=== PATIENT | female | born 1980 | race African-American/Black ===

== ENCOUNTER 2016-12-09 19:08 | Emergency (ER) | payer OTHER ==
[~2016-12-09] VITALS: Ht 157.5 cm; Wt 63.5 kg
[~2016-12-09 19:08] MED LIST: ACETAMINOPHEN-1 EAC1 ORAL; ANUSOL-HC25 MG RECTAL; BACTRIM-DS1 EA ORAL; CYCLOBENZAPRINE10 MG ORAL; IBUPROFEN600 MG ORAL; KEFLEX500 MG ORAL; LORATADINE10 M1 PO; NAPROXEN375 MG PO; NKM; NORCO 5-325 TA1 EACH PO; PHENERGAN/CODE120 ML PO; VIBRAMYCIN100 MG ORAL; supplements
--- NOTE | 2016-12-09 19:38 | Emergency Room Report ---
History of Present Illness General Chief Complaint: Female Urogenital Problems Source: Patient Present Illness [facility] The patient is a 36-year-old female at 8 weeks gestation presenting for vaginal bleeding which occurred today. The patient states that she noticed intermittent pain to the left lower abdomen followed by light vaginal bleeding. She denies any pain at this time but states that the intermittent abdominal pain is described as an 8/10 sharp sensation. No known provoking or relieving factors. Pain does not radiate. She denies any other symptoms such as N, V, F, chills, dysuria, other vaginal DC, flank pain, constipation, diarrhea, LARES, dizziness Allergies: Coded Allergies: No Known Allergies (Unverified , 08/05/12) Patient History Past Medical History: see triage record Pertinent Family History: none Now: Yes : 3 Para: 2 Reviewed Nursing Documentation: PMH: Agreed, PSxH: Agreed Nursing Documentation-PM Past Medical History: No Stated History Hx Cardiac Problems: No - ANEMIA Review of Systems All Other Systems: negative except mentioned in HPI Physical Exam Vital Signs Date Time Temp Pulse Resp B/P Pulse Ox O2 Delivery O2 Flow Rate FiO2 12/09/16 19:11 98.2 78 18 100/55 99 Room Air Sp02 EP Interpretation: reviewed, normal General Appearance: no apparent distress, alert, GCS 15, non-toxic Head: normocephalic, atraumatic Eyes: bilateral eye PERRL, bilateral eye normal inspection ENT: hearing grossly normal, normal pharynx, no angioedema, normal voice Neck: full range of motion, supple/symm/no masses Respiratory: chest non-tender, lungs clear, normal breath sounds, speaking full sentences Cardiovascular #1: regular rate, rhythm, no edema Gastrointestinal: normal bowel sounds, soft, non-distended, no guarding, no rebound, tenderness - suprapubic Genitourinary: normal inspection, no CVA tenderness Musculoskeletal: back normal, gait/station normal, normal range of motion, non- tender Neurologic: alert, oriented x3, responsive, motor strength/tone normal, sensory intact, speech normal Psychiatric: judgement/insight normal, memory normal, mood/affect normal, no suicidal/homicidal ideation Skin: normal color, no rash, warm/dry, well hydrated Medical Decision Making PA Attestation Dr. Bui is my supervising physician. Patient management was discussed with my supervising physician Diagnostic Impression: Primary Impression: Threatened miscarriage ER Course The patient is a 36-year-old female at 8 weeks gestation presenting for vaginal bleeding Differential diagnoses considered include but not limited to Early , threatened , incomplete , ectopic , hemorrhagic cyst, UTI PE: Vitals WNL. NAD. Abdomen: Normal appearance. Non distended. No ecchymosis. Normal BS. + TTP over suprapubic region. No McBurney point tenderness. No guarding. No CVA tenderness CBC unremarkable. CMP unremarkable. beta hCG 92637 which is low for presumed gestational age of 8 weeks UA: consistent with UTI US: Evidence of intrauterine . Viability is indeterminate at this time. The patient was informed of these results and will followup with [facility] in 2-3 days for followup and repeat ultrasound/beta hCG. She is informed to return to the emergency department if pain or bleeding continues/worsens or for any reason. She agrees with this plan. She'll be treated for UTI Labs Test 12/09/16 19:25 12/09/16 20:00 Urine Color Yellow Urine Appearance Slightly cloudy Urine pH 9 (4.5-8.0) Urine Specific [place] 1.015 (1.005-1.035) Urine Protein Negative (NEGATIVE) Urine Glucose (UA) Negative (NEGATIVE) Urine Ketones Negative (NEGATIVE) Urine Occult Blood Negative (NEGATIVE) Urine Nitrite Negative (NEGATIVE) Urine Bilirubin Negative (NEGATIVE) Urine Urobilinogen Normal MG/DL (0.0-1.0) Urine Leukocyte Esterase 1+ (NEGATIVE) Urine RBC 5-10 /HPF (0 - 2) Urine WBC 0-2 /HPF (0 - 2) Urine Squamous Epithelial Cells Many /LPF (NONE/OCC) Urine Bacteria Moderate /HPF (NONE) Urine Mucus Moderate /LPF (NONE/OCC) Urine HCG, Qualitative Positive White Blood Count 6.1 K/UL (4.8-10.8) Red Blood Count 3.83 M/UL (4.20-5.40) Hemoglobin 11.5 G/DL (12.0-16.0) Hematocrit 34.0 % (37.0-47.0) Mean Corpuscular Volume 89 FL (80-99) Mean Corpuscular Hemoglobin 30.0 PG (27.0-31.0) Mean Corpuscular Hemoglobin Concent 33.9 G/DL (32.0-36.0) Red Cell Distribution Width 13.0 % (11.6-14.8) Platelet Count 240 K/UL (150-450) Mean Platelet Volume 6.7 FL (6.5-10.1) Neutrophils (%) (Auto) 51.7 % (45.0-75.0) Lymphocytes (%) (Auto) 37.4 % (20.0-45.0) Monocytes (%) (Auto) 8.7 % (1.0-10.0) Eosinophils (%) (Auto) 1.2 % (0.0-3.0) Basophils (%) (Auto) 1.1 % (0.0-2.0) Sodium Level 138 mEQ/L (135-145) Potassium Level 4.3 mEQ/L (3.4-4.9) Chloride Level 100 mEQ/L (98-107) Carbon Dioxide Level 25 mEQ/L (20-30) Anion Gap 13 (5-15) Blood Urea Nitrogen 10 mg/dL (7-23) Creatinine 0.6 mg/dL (0.5-0.9) Estimat Glomerular Filtration Rate > 60 mL/min (>60) Glucose Level 94 mg/dL (74-106) Calcium Level 9.4 mg/dL (8.6-10.2) Total Bilirubin 0.6 mg/dL (0.0-1.2) Aspartate Amino Transf (AST/SGOT) 20 U/L (5-40) Alanine Aminotransferase (ALT/SGPT) 14 U/L (3-33) Alkaline Phosphatase 40 U/L (35-104) Total Protein 7.1 g/dL (6.6-8.7) Albumin 4.3 g/dL (3.5-5.2) Globulin 2.8 g/dL Albumin/Globulin Ratio 1.5 (1.0-2.7) Human Chorionic Gonadotropin, Quant 45667 mIU/mL Lab Results Impression CBC unremarkable. CMP unremarkable. beta hCG 23837 which is low for presumed gestational age of 8 weeks UA: consistent with UTI CT/MRI/US Diagnostic Results CT/MRI/US Diagnostic Results : Imaging Test Ordered: OB US Impression Evidence of intrauterine . Viability is indeterminate at this time. Ultrasound dating of the intrauterine is inadequate as obtained on the current exam. The may be too early to date. Suggest correlation with quantitative beta-hCG and repeat the ultrasound examination. Last Vital Signs Date Time Temp Pulse Resp B/P Pulse Ox O2 Delivery O2 Flow Rate FiO2 12/09/16 19:11 98.2 78 18 100/55 99 Room Air Status: improved Disposition: HOME, SELF-CARE Condition: Stable Referrals: [facility],REFERRING (PCP) MAURIZIO TOTH Dec 09, 2016 19:38
[2016-12-09 19:42] LABS: APPEARANCE,URINE SLIGHTLY CLOUDY; KETONES,URINE NEGATIVE (NEGATIVE); LEUKOCYTE ESTERASE ,URINE 1+ (NEGATIVE); NITRITE,URINE NEGATIVE (NEGATIVE); PH,URINE 9 (4.5-8.0); PROTEIN,URINE NEGATIVE (NEGATIVE); UROBILINOGEN,URINE NORMAL MG/DL (0.0-1.0)
[2016-12-09 19:50] LABS: SQUAMOUS EPITHELIAL CELL,UR MANY /LPF (NONE/OCC); WBC,URINE 0-2 /HPF (0 - 2)
[2016-12-09 19:51] LABS: BACTERIA,URINE MODERATE /HPF; MUCUS,URINE MODERATE /LPF (NONE/OCC)
[2016-12-09 20:22] LABS: BASOPHILS % (AUTO) 1.1 % (0.0-2.0); EOSINOPHILS % (AUTO) 1.2 % (0.0-3.0); LYMPHOCYTES % (AUTO) 37.4 % (20.0-45.0); MEAN CORPUSCULAR HGB CONC 33.9 G/DL (32.0-36.0); MEAN CORPUSCULAR VOLUME 89 FL (80-99); MEAN PLATELET VOLUME 6.7 FL (6.5-10.1); MONOCYTES % (AUTO) 8.7 % (1.0-10.0); NEUTROPHILS % (AUTO) 51.7 % (45.0-75.0); PLATELET COUNT 240 K/UL (150-450); RED BLOOD COUNT 3.83 M/UL (4.20-5.40); WHITE BLOOD COUNT 6.1 K/UL (4.8-10.8)
[2016-12-09 20:33] LABS: ALANINE AMINOTRANSFERASE 14 U/L (3-33); ALBUMIN/GLOBULIN RATIO 1.5 (1.0-2.7); ANION GAP 13 (5-15); ASPARTATE AMINO TRANSFERASE 20 U/L (5-40); CALCIUM 9.4 mg/dL (8.6-10.2); CARBON DIOXIDE 25 mEQ/L (20-30); CHLORIDE 100 mEQ/L (98-107); CREATININE 0.6 mg/dL (0.5-0.9); GLOMERULAR FILTRATION RATE > 60 mL/min (>60); HEMOLYSIS 6; POTASSIUM 4.3 mEQ/L (3.4-4.9); SODIUM 138 mEQ/L (135-145); TOTAL PROTEIN 7.1 g/dL (6.6-8.7)
[2016-12-09] MEDS ORDERED: NITROFURANTOIN100 M2 ORAL (21:56)
[2016-12-09 22:24] VITALS: BP 100/80
--- NOTE | 2016-12-10 14:47 | Diagnostic Imaging Report ---
Indication:Vaginal bleeding. OB ultrasound Technique: Grayscale and duplex Doppler imaging of the pelvis performed utilizing a transabdominal scan and endovaginal scan. Comparison: None Findings: Examination demonstrates evidence of an intrauterine gestational sac. There is a yolk sac demonstrated. There is what appears to be a pole but no heart tones. The pole is not seen well enough to measure. The gestational sac measurements estimate of gestational age are not provided as an average or mean sac diameter. The one MSD noted is too small to date. One gestational sac measurement of 19.2 mm corresponds to a 5 week 5 day . Both ovaries are seen and appear normal with Doppler evidence of blood flow. Impression: Evidence of intrauterine . Viability is indeterminate at this time. Ultrasound dating of the intrauterine is inadequate as obtained on the current exam. The may be too early to date. Suggest correlation with quantitative beta-hCG and repeat the ultrasound examination.
== END 2016-12-09 22:26 | disposition home or self-care (01) ==
LOC: EMR 19:26
DX: O20.0 Threatened abortion (principal); O23.41 Unspecified infection of urinary tract in pregnancy, first trimester; Z3A.08 8 weeks gestation of pregnancy
CPT/HCPCS: 36415; 76801; 76830; 80053; 81003; 81025; 84702; 85025; 87086; 96374

== ENCOUNTER 2016-12-11 08:48 | Emergency (ER) | payer OTHER ==
[~2016-12-11] VITALS: Ht 157.5 cm; Wt 63.5 kg
[~2016-12-11 08:48] MED LIST changes: +NITROFURANTOIN100 M2 ORAL
--- NOTE | 2016-12-11 09:11 | Emergency Room Report ---
History of Present Illness General Chief Complaint: Complications Source: Patient Present Illness HPI [id number] walk-in with cale vaginal bleeding without abd pain for 1 day. Denies urinary complaints, nausea/vomiting, diarrhea, fever/chills. Was here 2 days ago on December 09 for similar complaint. At the time, lab testing showed H&H stable , Beta quant 12K, IUP on Sono but age was indeterminate. Patient with bacteria on UA, was DCed with Abx which she has been taking. Allergies: Coded Allergies: No Known Allergies (Unverified , 08/05/12) Patient History Past Medical History: none Past Surgical History: none Pertinent Family History: none Social History: Denies: alcohol use, drug use, smoking Last Menstrual Period: 5-6 weeks Now: Yes - 5-6 weeks : 3 Para: 2 Immunizations: UTD Reviewed Nursing Documentation: PMH: Agreed, PSxH: Agreed Nursing Documentation-PMH Past Medical History: No Stated History Hx Cardiac Problems: No - ANEMIA Review of Systems All Other Systems: negative except mentioned in HPI Physical Exam Vital Signs Date Time Temp Pulse Resp B/P Pulse Ox O2 Delivery O2 Flow Rate FiO2 12/11/16 08:53 98.2 72 16 109/56 100 Room Air Sp02 EP Interpretation: reviewed, normal General Appearance: normal inspection, well appearing, no apparent distress, alert, GCS 15, non-toxic Head: normocephalic, atraumatic Eyes: bilateral eye EOMI, bilateral eye PERRL ENT: normal ENT inspection, hearing grossly normal, normal voice Neck: normal inspection, full range of motion, supple, no bony tend Respiratory: normal inspection, lungs clear, normal breath sounds, no respiratory distress, no retraction, no wheezing Cardiovascular #1: regular rate, rhythm, no edema Gastrointestinal: normal inspection, normal bowel sounds, non tender, soft, no guarding, no hernia Genitourinary: no CVA tenderness Musculoskeletal: normal inspection, back normal, normal range of motion, Chanelle' s Sign negative Neurologic: normal inspection, alert, oriented x3, responsive, architectural associate III-XII nml as tested, motor strength/tone normal, speech normal Psychiatric: normal inspection, judgement/insight normal, mood/affect normal Skin: normal inspection, normal color, no rash Medical Decision Making Diagnostic Impression: Primary Impression: Vaginal bleeding Additional Impression: Spontaneous ER Course Likely spontaneous H&H stable Beta HCG downtrended 50% in 2 days Official sono with no IUP, retained POCs Patient intermittently bleeding with cramping, passing blood and clots Has MANAGEMENT REP followup in 2 days Advised she will continue to have clots/tissue passage Ibuprofen as needed for cramps Return for severe hemorrhaging Last Vital Signs Date Time Temp Pulse Resp B/P Pulse Ox O2 Delivery O2 Flow Rate FiO2 12/11/16 08:53 98.2 72 16 109/56 100 Room Air Status: improved Disposition: HOME, SELF-CARE Scripts Ibuprofen* (MOTRIN*) 600 Mg Tablet 600 MG ORAL THREE TIMES A DAY for For Pain for 7 Days, #30 TAB 0 Refills Prov: TORIN MUNOZ M.D. 12/11/16 TORIN MUNOZ M.D. Dec 11, 2016 09:11
[2016-12-11 09:23] LABS: APPEARANCE,URINE CLEAR; KETONES,URINE NEGATIVE (NEGATIVE); LEUKOCYTE ESTERASE ,URINE 1+ (NEGATIVE); NITRITE,URINE NEGATIVE (NEGATIVE); PH,URINE 6.5 (4.5-8.0); PROTEIN,URINE NEGATIVE (NEGATIVE); UROBILINOGEN,URINE 1 MG/DL (0.0-1.0)
[2016-12-11 09:32] LABS: BACTERIA,URINE FEW /HPF; RBC,URINE 30-40 /HPF (0 - 2); SQUAMOUS EPITHELIAL CELL,UR FEW /LPF (NONE/OCC)
[2016-12-11 10:44] LABS: BASOPHILS % (AUTO) 1.7 % (0.0-2.0); EOSINOPHILS % (AUTO) 0.5 % (0.0-3.0); LYMPHOCYTES % (AUTO) 39.6 % (20.0-45.0); MEAN CORPUSCULAR HEMOGLOBIN 29.3 PG (27.0-31.0); MEAN CORPUSCULAR HGB CONC 33.2 G/DL (32.0-36.0); MEAN CORPUSCULAR VOLUME 88 FL (80-99); MEAN PLATELET VOLUME 6.6 FL (6.5-10.1); NEUTROPHILS % (AUTO) 47.2 % (45.0-75.0); PLATELET COUNT 254 K/UL (150-450); RED BLOOD COUNT 3.83 M/UL (4.20-5.40); RED CELL DISTRIBUTION WIDTH 13.2 % (11.6-14.8); WHITE BLOOD COUNT 4.7 K/UL (4.8-10.8)
[2016-12-11 12:15] VITALS: BP 109/68
[2016-12-11] MEDS ORDERED: IBUPROFEN600 MG ORAL (12:28)
[2016-12-11 12:35] VITALS: BP 109/68
--- NOTE | 2016-12-11 13:11 | Diagnostic Imaging Report ---
Indication:Lower abdominal and pelvic pain Technique: Grayscale and duplex Doppler imaging of the pelvis performed utilizing a transabdominal scan and endovaginal scan. Comparison: None Findings: There is no intrauterine identified. There is complex heterogeneous fluid and material within the endometrial canal consistent with blood products. Retained products of conception are not excluded. In the anterior body there are 2 small masses present. One of these might be cystic and measures about 8 mm. The other appears hypoechoic relative to surrounding myometrium and is of similar size. There is also a posterior uterine mass one CM hypoechoic. The ovaries appear to show Doppler evidence of blood flow. There is a small cyst in the left ovary measuring 1.2 cm. Small amount of free fluid is present. Uterus measures 9.8 x 7.3 x 5.4 cm. Right ovary 2.8 x 2.3 x 1.2 cm. Left ovary 2.0 x 1.7 cm. Impression: No intrauterine demonstrated. Blood and/or retained products of conception suspected within the endometrial canal. Small left corpus luteum cyst suspected. Several small masslike lesions within the uterus likely small fibroids.
== END 2016-12-11 12:35 | disposition home or self-care (01) ==
LOC: EMR 09:12
DX: O03.9 Complete or unspecified spontaneous abortion without complication (principal)
CPT/HCPCS: 36415; 76830; 76856; 81003; 81025; 84702; 85025; 99284

== ENCOUNTER 2017-04-17 16:20 | Emergency (ER) | payer OTHER ==
[~2017-04-17] VITALS: Ht 157.5 cm; Wt 65.8 kg
[2017-04-17 17:00] VITALS: BP 102/63
[2017-04-17 17:27] LABS: APPEARANCE,URINE CLEAR; KETONES,URINE NEGATIVE (NEGATIVE); LEUKOCYTE ESTERASE ,URINE 1+ (NEGATIVE); NITRITE,URINE NEGATIVE (NEGATIVE); PH,URINE 6.5 (4.5-8.0); PROTEIN,URINE NEGATIVE (NEGATIVE); UROBILINOGEN,URINE 1 MG/DL (0.0-1.0)
[2017-04-17 17:38] LABS: BACTERIA,URINE FEW /HPF; RBC,URINE 0-2 /HPF (0 - 2); SQUAMOUS EPITHELIAL CELL,UR FEW /LPF (NONE/OCC)
[2017-04-17] MEDS ORDERED: PHENAZOPYRIDIN200 MG ORAL (17:42)
[2017-04-17] MEDS ORDERED: NITROFURANTOIN100 M2 ORAL (17:42)
--- NOTE | 2017-04-17 17:42 | Emergency Room Report ---
History of Present Illness General Chief Complaint: Female Urogenital Problems Source: Patient Present Illness HPI 37-year-old female presents to the emergency department for evaluation of possible UTI. Patient reports urgency and describes frequent visits to the restroom feeling as though she needs to urinate, with very little actual urination. Patient denies hematuria she reports some mild dysuria. Patient reports history of UTIs in the past and states it her symptoms are consistent with symptoms previously experienced with UTIs. denies itching, lesions or swollen tender lymph nodes. denies polyuria, HTN, hx of gestational DM. Patient reports she is currently she denies vaginal bleeding, abdominal pain, nausea or vomiting. She denies low back pain, fevers or chills. Denies CP, Palpitations, LOC, AMS, dizziness, Changes in Vision, Sensation, paresthesias, or a sudden severe headache. Allergies: Coded Allergies: No Known Allergies (Unverified , 08/05/12) Patient History Past Medical History: none Past Surgical History: unable to obtain Pertinent Family History: none Last Menstrual Period: 12/2016 Now: Yes : 2 Para: 2 Immunizations: UTD Reviewed Nursing Documentation: PMH: Agreed, PSxH: Agreed Nursing Documentation-PMH Past Medical History: No Stated History Hx Cardiac Problems: No - ANEMIA Review of Systems All Other Systems: negative except mentioned in HPI Physical Exam Vital Signs Date Time Temp Pulse Resp B/P (MAP) Pulse Ox O2 Delivery O2 Flow Rate FiO2 04/17/17 16:23 98.1 81 16 102/63 99 Room Air Sp02 EP Interpretation: reviewed, normal General Appearance: no apparent distress, alert, GCS 15, non-toxic Head: normocephalic, atraumatic Eyes: bilateral eye normal inspection, bilateral eye PERRL ENT: hearing grossly normal, normal voice Neck: full range of motion, supple/symm/no masses Respiratory: lungs clear, normal breath sounds, speaking full sentences Cardiovascular #1: regular rate, rhythm, no edema Gastrointestinal: normal bowel sounds, non tender, soft, no guarding, no rebound Rectal: deferred Genitourinary: normal inspection, no CVA tenderness Musculoskeletal: back normal, gait/station normal, normal range of motion, non- tender Neurologic: alert, oriented x3, responsive, motor strength/tone normal, sensory intact, speech normal Psychiatric: judgement/insight normal, memory normal, mood/affect normal Skin: normal color, no rash, warm/dry, well hydrated Lymphatic: no adenopathy Medical Decision Making PA Attestation Dr. Manuel is my supervising Physician whom patient management has been discussed with. Diagnostic Impression: Primary Impression: Urinary tract infection Qualified Codes: N30.01 - Acute cystitis with hematuria ER Course 37-year-old female presents to the emergency department for evaluation of possible UTI. Patient reports urgency and describes frequent visits to the restroom feeling as though she needs to urinate, with very little actual urination. Patient denies hematuria she reports some mild dysuria. Patient reports history of UTIs in the past and states it her symptoms are consistent with symptoms previously experienced with UTIs. denies itching, lesions or swollen tender lymph nodes. denies polyuria, HTN, hx of gestational DM. Patient reports she is currently she denies vaginal bleeding, abdominal pain, nausea or vomiting. She denies low back pain, fevers or chills. Denies CP, Palpitations, LOC, AMS, dizziness, Changes in Vision, Sensation, paresthesias, or a sudden severe headache. Ddx considered but are not limited to UTi , Pyelo, STI, Stone, Cystitis Vital signs: are WNL, pt. is afebrile H&PE are most consistent with UTI ORDERS: - UA labs are attached : increased Leuks with presence of few bacteria suspicious for UTI- will treat ED INTERVENTIONS: -Pyridium PO DISCHARGE: At this time pt. is stable for d/c to home. Will provide printed patient care instructions, and any necessary prescriptions. Care plan and follow up instructions have been discussed with the patient prior to discharge. Labs Test 04/17/17 16:48 Urine Color Yellow Urine Appearance Clear Urine pH 6.5 (4.5-8.0) Urine Specific [place] 1.015 (1.005-1.035) Urine Protein Negative (NEGATIVE) Urine Glucose (UA) Negative (NEGATIVE) Urine Ketones Negative (NEGATIVE) Urine Occult Blood Negative (NEGATIVE) Urine Nitrite Negative (NEGATIVE) Urine Bilirubin Negative (NEGATIVE) Urine Urobilinogen 1 MG/DL (0.0-1.0) Urine Leukocyte Esterase 1+ (NEGATIVE) Urine RBC 0-2 /HPF (0 - 2) Urine WBC 2-4 /HPF (0 - 2) Urine Squamous Epithelial Cells Few /LPF (NONE/OCC) Urine Bacteria Few /HPF (NONE) Last Vital Signs Date Time Temp Pulse Resp B/P (MAP) Pulse Ox O2 Delivery O2 Flow Rate FiO2 04/17/17 17:00 98.1 78 16 102/63 99 Room Air Disposition: HOME, SELF-CARE Condition: Stable Scripts Nitrofurantoin Monohyd/M-Cryst* (MACROBID 100 MG*) 100 Mg Capsule 100 MG ORAL EVERY 12 HOURS for 5 Days, #10 CAP Prov: Marya Marcum 04/17/17 Phenazopyridine Hcl* (PYRIDIUM*) 200 Mg Tablet 200 MG ORAL THREE TIMES A DAY for 3 Days, #9 TAB 0 Refills Prov: Marya Marcum 04/17/17 Patient Instructions: Urinary Tract Infection Additional Instructions: Take medications as directed. Follow up with a Primary Care Provider in 3-5 days, even if your symptoms have resolved. Return sooner to ED if new symptoms occur, or current symptoms become worse. Pyridium will cause your urine to change color (Red/Coryell), this is a normal side effect of the medication. - Please note that this Emergency Department Report was dictated using [employer]ballet teacher technology software, occasionally this can lead to erroneous entry secondary to interpretation by the dictation equipment. Marya Marcum Apr 17, 2017 17:42
== END 2017-04-17 18:00 | disposition home or self-care (01) ==
LOC: EMR 17:44
DX: O23.40 Unspecified infection of urinary tract in pregnancy, unspecified trimester (principal)
CPT/HCPCS: 81003; 99284